=== PATIENT | female | born 1995 | race Asian ===

== ENCOUNTER 2020-07-24 03:55 | Emergency (ER) | payer BC, OTHER ==
[~2020-07-24] VITALS: Ht 167.6 cm; Wt 72.7 kg
[~2020-07-24 03:55] MED LIST: NYQUIL
[2020-07-24] MEDS ORDERED: ACETAMINOPHEN 325 MG TABLET PO ONE (05:15)
[2020-07-24 08:28] VITALS: BP 119/78
== END 2020-07-24 08:39 | disposition home or self-care (01) ==
LOC: EMS 03:55
DX: H11.421 Conjunctival edema, right eye (principal); F12.90 Cannabis use, unspecified, uncomplicated
CPT/HCPCS: 70450; 70486

== ENCOUNTER 2021-03-06 11:07 | Emergency (ER) | payer BC ==
[~2021-03-06] VITALS: Ht 167.6 cm; Wt 72.0 kg
[2021-03-06] MEDS ORDERED: CefTRIAXone SODIUM 1 GM/VIAL IM ONE (12:00)
[2021-03-06] MEDS ORDERED: LIDOCAINE/PF 1% 2 ML VIAL IM ONE (12:00)
[2021-03-06] MEDS ORDERED: DOXYCYCLINE HYCLATE 100 MG TABLET PO ONE (12:00)
[2021-03-06 12:26] VITALS: BP 121/67
== END 2021-03-06 12:28 | disposition home or self-care (01) ==
LOC: EMS 11:07
DX: J02.9 Acute pharyngitis, unspecified (principal); G43.909 Migraine, unspecified, not intractable, without status migrainosus; F17.200 Nicotine dependence, unspecified, uncomplicated; F12.90 Cannabis use, unspecified, uncomplicated
CPT/HCPCS: 96372; 99283; J0696; J3490